=== PATIENT | female | born 1960 | race Hispanic/Latino ===

== ENCOUNTER → 2025-01-30 | Day surgery (SDC) | payer OTHER ==
[~2025-01-30] MED LIST: FENTANYL CITRATE/PF 100MCG/2 ML INJ ONE; FERROUS SULFAT324 MG PO; GLUCAGON FOR INJ 1 MG VIAL ONE; HYOSCYAMINE SULFATE 0.5 MG/ML INJ ONE; KETAMINE 50MG/5ML SYR ONE; LIDOCAINE HCL 2% LOCAL INJ 5 ML SDV VIAL INJ ONE; METOCLOPRAMIDE HCL 10 MG/2ML VIAL ONE; ONDANSETRON HCL INJ 2MG/ML 2ML 2 MG/ML VIAL ONE; PANTOPRAZOLE SO40 MG PO; PROPOFOL IV EMULSION 50 ML IV ONE
[2025-01-30] MEDS: LACTATED RINGER'S 1,000 ML ONE (07:45)
[2025-01-30 09:18] VITALS: TEMP 98.7
[2025-01-30 09:50] VITALS: BP 122/86; PULSE 89; RESP 16; O2SAT 98
[2025-02-01 17:11] LABS: ENDOMYSIAL ANTIBODIES, IGA Negative (Negative)
[2025-02-01 19:28] LABS: TISSUE TRANSGLUTAMINASE IGA AB <2 U/mL (0-3)
== END | disposition home or self-care (01) ==
LOC: OR 07:10
PROVIDERS: ATTEND Internal Medicine Gastroenterology
DX: D64.89 Other specified anemias (principal); D12.8 Benign neoplasm of rectum; K63.5 Polyp of colon; K29.50 Unspecified chronic gastritis without bleeding; B96.81 Helicobacter pylori [H. pylori] as the cause of diseases classified elsewhere; K20.90 Esophagitis, unspecified without bleeding; K21.9 Gastro-esophageal reflux disease without esophagitis; K57.30 Diverticulosis of large intestine without perforation or abscess without bleeding; K64.8 Other hemorrhoids; R03.0 Elevated blood-pressure reading, without diagnosis of hypertension; Z71.89 Other specified counseling; M19.90 Unspecified osteoarthritis, unspecified site; Z01.810 Encounter for preprocedural cardiovascular examination; Z68.26 Body mass index [BMI] 26.0-26.9, adult; Z71.3 Dietary counseling and surveillance
CPT/HCPCS: 43239; 45385; 82784; 83516; 86256; 93005; J1610; J1980; J2003; J2405; J2470; J2704; J2765; J3010; J7121; 45378